=== PATIENT | male | born 1975 | race African-American/Black ===

== ENCOUNTER 2017-04-19 11:35 | Emergency (ER) | payer BC, OTHER ==
[~2017-04-19] VITALS: Ht 188 cm; Wt 128.4 kg
[~2017-04-19 11:35] MED LIST: CARDIZEM CD240 MG PO; NORVASC 5 MG TAB5 MG PO; NYQUIL D COLD295 ML; TUSSIONEX PENN473 ML PO; UNKNOWN BP MED; ZPAK PO
[2017-04-19] MEDS ORDERED: IBUPROFEN 800800 M1 PO (12:17)
== END 2017-04-19 12:37 | disposition home or self-care (01) ==
LOC: ER 11:35
DX: Z98.890 Other specified postprocedural states (principal)